=== PATIENT | male | born 1985 | race Caucasian/White ===

== ENCOUNTER 2024-03-25 14:11 | Emergency (ER) | payer OTHER ==
[2024-03-25 14:22] VITALS: BP 131/78; O2SAT 99
--- NOTE | 2024-03-25 14:26 | ED Physician Documentation ---
PD HPI HEENT - Stated complaint Stated Complaint: BLOOD IN RT EAR,EAR PX - Chief complaint Chief Complaint: Heent - History obtained from History obtained from: Patient - History of Present Illness Timing - onset: How many days ago (has had decreased hearing right ear for 1-2 days, and then some pain to it last night. Tried peroxide and earwax softener and then curretted some wax out. Had pain with that and some beedling. Here for eval of this. Left ear okay. No URI symptoms.) PD PAST MEDICAL HISTORY - Past Medical History Respiratory: Asthma - Past Surgical History Past Surgical History: No - Present Medications Home Medications: Ambulatory Orders Medication Instructions Recorded Confirmed Neomycin/Polymyx/Hc Otic Drops 4 drops RIGHTEAR TID #10 ml 03/25/24 [Cortisporin Ear Susp] - Allergies Allergies/Adverse Reactions: Allergies Allergy/AdvReac Type Severity Reaction Status Date / Time ciprofloxacin Allergy Rash Verified 03/25/24 14:22 - Social History Does the pt smoke?: No Smoking Status: Never smoker Does the pt drink ETOH?: Yes Does the pt have substance abuse?: No PD ED PE NORMAL - Vitals Vital signs reviewed: Yes - General General: Alert and oriented X 3, No acute distress, Well developed/nourished - HEENT HEENT: Pharynx benign. No: Ears normal (left is normal. Right with still earwax glob. Can just see over the toprim but mostly occluding. There is abrasion of canal outward of the wax with small drop of blood. No apparent ongling bleeding. ) - Neck Neck: Supple, no meningeal sign, No adenopathy Results - Vitals Vitals: Oxygen O2 Source Room air PD Medical Decision Making - ED course Complexity details: re-evaluated patient (nurse irrigated the canal and got large glob of wax out. View of canal after that shows marked irritation, swelling and some exudate of medial canal that was behind the wax. TM itself is okay.), considered differential (apparent cerumen impaction and there is abrasion of canal outward of that, presume mechanical from curetting by . ), d/w patient Departure - Departure Disposition: 01 Home, Self Care Clinical Impression: Cerumen impaction Qualifiers: Laterality: right Qualified Code(s): H61.21 - Impacted cerumen, right ear Otitis externa Qualifiers: Otitis externa type: unspecified type Chronicity: acute Laterality: right Qualified Code(s): H60.501 - Unspecified acute noninfective otitis externa, right ear Condition: Stable Record reviewed to determine appropriate education?: Yes Instructions: ED Otitis Externa Follow-Up: KEIRA VILLARREAL MD [Primary Care Provider] - Prescriptions: Neomycin/Polymyx/Hc Otic Drops [Cortisporin Ear Susp] 4 drops RIGHTEAR TID #10 ml Comments: The earwax likely trapped some fluid behind it as there is some irritation and inflammation and slight tissue breakdown in the canal that was behind the earwax. The abrasion towards the outer part of the canal created by removing the wax is a mild abrasion in the tissue should heal up fine. Regarding the more raw area closer to the eardrum, I would suggest a combination of an anti-inflammatory with antibiotic eardrop several times daily for the next 4 to 5 days. Tylenol ibuprofen if needed for pains. Forms: PCP List Discharge Date/Time: 03/25/24 15:50
[2024-03-25] MEDS: NEOMYCIN/POLYMYX/HC OTIC DROPS RIGHTEAR STA (15:28)
== END 2024-03-25 15:50 | disposition home or self-care (01) ==
LOC: ED 14:11
DX: H61.21 Impacted cerumen, right ear (principal); H60.501 Unspecified acute noninfective otitis externa, right ear
CPT/HCPCS: 69209; 99283; A9270